=== PATIENT | female | born 1990 | race African-American/Black ===

== ENCOUNTER 2023-05-11 16:52 | Emergency (ER) | payer OTHER ==
[2023-05-11 17:18] VITALS: BMI 24.7
[2023-05-11] MEDS ORDERED: ACETAMINOPHEN 1000 MG/100 ML BAG IVPB ONE (17:35)
[2023-05-11] MEDS ORDERED: ACETAMINOPHEN INJECTION 100 ML IVPB ONE (17:39)
[2023-05-11 17:54] LABS: BASO % 0.5 % (0-2.0); EOS % 1.9 % (0-4.5); HEMATOCRIT 34.4 % (32.4-45.2); HEMOGLOBIN 11.6 GM/dL (10.7-15.3); LYMPH % 21.8 % (8-40); MCH 28.1 pg (25.7-33.7); MCHC 33.7 g/dl (32.0-36.0); MEAN CELL VOLUME 83.4 fl (80-96); MEAN PLT VOLUME 8.1 fl (7.5-11.1); MONO % 8.9 % (3.8-10.2); NEUT % 66.9 % (42.8-82.8); PLATELET COUNT 328 10^3/uL (134-434); RBC 4.12 M/mm3 (3.60-5.2); RDW 14.9 % (11.6-15.6); WHITE BLOOD COUNT 8.3 K/mm3 (4.0-10.0)
[2023-05-11 18:13] LABS: URINE APPEARANCE CLEAR; URINE BILIRUBIN NEGATIVE (NEGATIVE); URINE COLOR YELLOW; URINE GLUCOSE (UA) NEGATIVE (NEGATIVE); URINE KETONE NEGATIVE (NEGATIVE); URINE LEUK ESTERASE NEGATIVE (NEGATIVE); URINE NITRITE NEGATIVE (NEGATIVE); URINE PROTEIN NEGATIVE (NEGATIVE)
[2023-05-11 18:17] LABS: POTASSIUM 4.6 mmol/L (3.5-5.1)
[2023-05-11 18:20] LABS: CALCIUM 9.7 mg/dL (8.5-10.1)
[2023-05-11 18:21] LABS: ALBUMIN 3.8 g/dl (3.4-5.0); BLOOD UREA NITROGEN 8.2 mg/dL (7-18)
[2023-05-11 18:24] LABS: CREATININE 0.7 mg/dL (0.55-1.3)
[2023-05-11 18:25] LABS: BILIRUBIN,TOTAL 0.2 mg/dL (0.2-1); TOT PROT 7.5 g/dl (6.4-8.2)
[2023-05-11 19:59] VITALS: BP 109/66; PULSE 66; RESP 20; TEMP 98.1
== END 2023-05-11 21:43 | disposition home or self-care (01) ==
LOC: JER 16:52
PROC: 3E033NZ Introduction of Analgesics, Hypnotics, Sedatives into Peripheral Vein, Percutaneous Approach (ICD-10-PCS; principal; 2023-05-11)
DX: O26.891 Other specified pregnancy related conditions, first trimester (principal); R10.13 Epigastric pain; R10.11 Right upper quadrant pain; Z3A.08 8 weeks gestation of pregnancy
CPT/HCPCS: 0241U-QW; 36415; 76705-TC; 76801-TC; 80053; 81003; 83690; 84702; 85025; 87086; 99285-25; J0131